=== PATIENT | female | born 1965 | race Caucasian/White ===

== ENCOUNTER 2022-07-05 08:26 | Outpatient (CLI) | payer BC, SELFPAY ==
--- NOTE | 2022-07-05 08:36 | MM_ITS ---
WS: [id number] BILATERAL 3D TOMOSYNTHESIS DIGITAL SCREENING MAMMOGRAPHY WITH CAD CLINICAL INFORMATION: SCREENING HISTORY: Screening mammogram. No current complaints. COMPARISON: 2019 TECHNIQUE: Bilateral CC and MLO views. FINDINGS: Scattered fibroglandular densities bilaterally. No suspicious focal mass, asymmetry, calcifications, or architectural distortion. No evidence of malignancy. MM/[place] [id number] IMPRESSION: BI-RADS: 1-Negative FOLLOW UP: 1 Year Follow-up Recommend return to annual screening mammography.
== END 2022-07-05 08:27 | disposition home or self-care (01) ==
LOC: RAD 08:27
PROVIDERS: PCP Physician Assistant; Visit Provider Physician Assistant
DX: Z12.31 Encounter for screening mammogram for malignant neoplasm of breast (principal)
CPT/HCPCS: 77063; 77067

== ENCOUNTER 2024-04-17 11:58 | Emergency (ER) | payer BC, SELFPAY ==
[2024-04-17] VITALS (9 sets, daily range): BP systolic 103–126; BP diastolic 62–89; PULSE 62–98; RESP 12–18; TEMP 36.8; O2SAT 66–100; BMI 29.7
--- NOTE | 2024-04-17 12:08 | ECG_ITS ---
[facility] Test Date: 2024-04-17 Pat Name: Carolina De Paz Department: Room: Gender: Female Client Success Manager: : 1965 Requested By: Faiza Vidales Order Number: [id number] Reading MD: MERLINE CLOUD Measurements Intervals [place] Rate: 69 P: 32 PA: 150 QRS: 43 QRSD: 81 T: 48 QT: 381 QTc: 410 Interpretive Statements SINUS RHYTHM LOW QRS VOLTAGE IN PRECORDIAL LEADS [QRS DEFLECTION < 1.0 mV IN CHEST LEADS] Compared to ECG 09/20/2016 17:57:22 No significant changes Electronically Signed On 04-17-2024 20:56:52 CDT by MERLINE CLOUD [email or web address]
--- NOTE | 2024-04-17 12:08 | XR_ITS ---
WS: [id number] Exam: XR chest 1V portable [id number] Date/Time of Exam: 04/17/2024 12:08 PM Reason For Exam: chest pain Comparison 09/20/2016. There has been interval cardiac enlargement with increased pulmonary vascularity. There are patchy in filtrates in the mid and lower RIGHT lung. No pleural effusion or pneumothorax. The mediastinum is no rmal in contour. XR/XR chest 1V portable [id number] IMPRESSION: 1. Interval cardiac enlargement with increased pulmonary vascularity. Some degr ee of early cardiac decompensation could have this appearance. 2. There are patchy infiltrates in the mid and lower RIGHT lung which could be secondary to developing pneumonia or early CHF.
--- NOTE | 2024-04-17 12:37 | W.ED.CHESTPA ---
HPI - Chest Pain General: Chief Complaint: Chest Pain Stated Complaint: back and chest pain Time Seen by Provider: 04/17/24 12:18 History of Present Illness: This healthy 59-year-old female who presents to the emergency room from clinic with chest and back pain. She has had some shortness of breath. Is always been over the last 2 days. She also notes she has some swelling in her right foot sometimes. No cough. No known medical history. No cardiac history. No abdominal pain. No nausea or vomiting. Related Data Previous Rx's Medication Instructions Recorded dexamethasone 6 mg tablet 6 mg PO DAILY 5 days #5 tabs 04/17/24 doxycycline hyclate 100 mg capsule 100 mg PO BID 7 days #14 caps 04/17/24 Allergies Allergy/AdvReac Type Severity Reaction Status Date / Time No Known Allergies Allergy Unverified 04/17/24 13:45 Review of Systems Narrative: Constitutional symptoms: Negative except as documented in HPI. Skin symptoms: Negative except as documented in HPI. Eye symptoms: Negative except as documented in HPI. ENMT symptoms: Negative except as documented in HPI. Respiratory symptoms: Negative except as documented in HPI. Cardiovascular symptoms: Negative except as documented in HPI. Gastrointestinal symptoms: Negative except as documented in HPI. Genitourinary symptoms: Negative except as documented in HPI. Musculoskeletal symptoms: Negative except as documented in HPI. Neurologic symptoms: Negative except as documented in HPI. Psychiatric symptoms: Negative except as documented in HPI. Endocrine symptoms: Negative except as documented in HPI. Physical Exam Narrative: EXAM NARRATIVE: General: Alert, no acute distress. Skin: Warm, dry. Head: Normocephalic, atraumatic. Neck: Supple, trachea midline. Eye: Extraocular movements are intact. Ears, nose, mouth and throat: mucosa moist. Cardiovascular: Regular, Normal peripheral perfusion. Respiratory: Lungs are clear to auscultation, respirations are non-labored, breath sounds are equal, Symmetrical chest wall expansion. Gastrointestinal: Soft, Nontender, Non distended Musculoskeletal: Normal ROM, no deformity. Neurological: Alert and oriented, No focal neurological deficit observed. Psychiatric: Cooperative, appropriate mood & affect. Course Vital Signs: Vital signs: Vital Signs Temperature 98.2 F 04/17/24 12:10 Pulse Rate 98 04/17/24 15:55 Respiratory Rate 17 04/17/24 14:30 Blood Pressure 124/71 04/17/24 15:55 Pulse Oximetry 66 L 04/17/24 15:55 Oxygen Delivery Me thod Room Air 04/17/24 15:30 MDM - Chest Pain Medical Decision Making Differential diagnosis for patient with chest pain includes but is not limited to and based on the above HPI, review of systems and physical exam: Pneumonia. unstable angina. angina. Acute coronary syndrome / AK. Pulmonary embolism. Costochondritis / musculoskeletal. Pleurisy. Pericarditis. Esophageal spasm. Pancreatis. Cholecystitis. Orders placed to evaluate differential diagnosis based on the above differential, HPI and physical exam EKG: Time 1201. Rate 69. Normal sinus rhythm, No ST-T changes, no ectopy, normal NC & QRS intervals, This was reviewed and interpreted by myself the ER physician at 1205. Repeat EKG: Time 1400. Rate 57. Sinus bradycardia, No ST-T changes, no ectopy, normal NC & QRS intervals, This was reviewed and interpreted by myself the ER physician at 1405. Heart rate has decreased from 69 to 57 from EKG done 2 hours ago Chest x-ray: Concern for increase in heart size and possibly some infiltrate in the right upper lobe. This was reviewed and interpreted by myself the emergency room physician. I also reviewed the radiology report. Lab Review: Laboratory results were reviewed and interpreted by myself the emergency room physician. Lab work is unremarkable. No leukocytosis. No anemia. No renal failure. Serial troponins are negative. CTA of the chest with PE protocol: Some possible patchy infiltrate in the right lung. No signs or symptoms that would indicate she does have heart failure. proBNP is not elevated either. This was reviewed and interpreted by myself the emergency room physician. I also reviewed the radiology report. I reviewed the patient's medical record. Reexamination: Patient remained stable. No increased work of breathing. No altered mental status. No focal motor deficits. Assessment and plan: Right sided infiltrate possible pneumonia. Noncardiac chest pain - Discharged home - Discussed findings and plan with patient. Answered any questions. - All laboratory values were reviewed and interpreted personally by myself, the ER physician - All imaging was reviewed and interpreted personally by myself, the ER physician. - Evaluation and treatment of this problem were appropriate in the emergency setting Lab Data 04/17/24 12:38 04/17/24 12:38 Radiology Impressions Chest X-Ray 04/17/24 12:08 IMPRESSION: 1. Interval cardiac enlargement with increased pulmonary vascularity. Some degree of early cardiac decompensation could have this appearance. 2. There are patchy infiltrates in the mid and lower RIGHT lung which could be secondary to developing pneumonia or early CHF. Chest CT 04/17/24 13:19 IMPRESSION: 1. Patchy nodular infiltrates in the RIGHT lower lobe nonspecific but likely infectious or inflammatory. Recommend correlation for pneumonia. Recommend follow-up to resolution. 2. LEFT lower lobe pulmonary nodule increased in size since 2019 measuring 1.6 cm. Neoplasm not excluded. Recommend further evaluation with PET/CT. 3. No other acute findings. Laboratory Results WBC 8.20 10^3/uL (3.29-11.43) 04/17/24 12:38 RBC 4.60 10^6/uL (3.85-5.65) 04/17/24 12:38 Hgb 13.40 g/dL (11.27-16.99) 04/17/24 12:38 Hct 42.0 % (36-47) 04/17/24 12:38 MCV 91.3 fl (85-98) 04/17/24 12:38 MCH 29.1 pg (27-33) 04/17/24 12:38 MCHC 31.9 g/dL (30-55) 04/17/24 12:38 RDW 12.5 % (12.1-15.1) 04/17/24 12:38 Plt Count 225 10^3/cmm (157-399) 04/17/24 12:38 MPV 9.9 fL (7.4-10.4) 04/17/24 12:38 Neut % (Auto) 74.4 % 04/17/24 12:38 Lymph % (Auto) 17.1 % 04/17/24 12:38 [place] % (Auto) 7.9 % 04/17/24 12:38 Eos % (Auto) 0.0 % 04/17/24 12:38 Baso % (Auto) 0.4 % 04/17/24 12:38 Neut # (Auto) 6.10 10^3/uL (1.8-7.7) 04/17/24 12:38 Lymph # (Auto) 1.4 10^3/uL (0.8-4.8) 04/17/24 12:38 [place] # (Auto) 0.7 10^3/uL (0.2-0.9) 04/17/24 12:38 Eos # (Auto) 0.0 10^3/uL (0.0-0.8) 04/17/24 12:38 Baso # (Auto) 0.0 10^3/uL (0.0-0.1) 04/17/24 12:38 Nucleated RBC % (auto) 0 % 04/17/24 12:38 Nucleated RBCs # 0.0 /100WBC 04/17/24 12:38 D-Dimer 0.49 ug/mLFEU (0-0.59) 04/17/24 12:38 Sodium 140 mmol/L (136-145) 04/17/24 12:38 Potassium 4.0 mmol/L (3.5-5.1) 04/17/24 12:38 Chloride 105 mmol/L (98-107) 04/17/24 12:38 Carbon Dioxide 25 mmol/L (22-29) 04/17/24 12:38 Anion Gap 14.0 (5-19) 04/17/24 12:38 BUN 17 mg/dL (8-23) 04/17/24 12:38 Creatinine 0.6 mg/dL (0.5-0.9) 04/17/24 12:38 GFR Calculation 102.0 mL/min (90-130) 04/17/24 12:38 Glucose 97 mg/dL (65-115) 04/17/24 12:38 Calculated Osmolality 291 mOsm/kg (285-295) 04/17/24 12:38 Calcium 8.9 mg/dL (8.5-10.5) 04/17/24 12:38 Total Bilirubin 0.4 mg/dL (0.15-1.2) 04/17/24 12:38 AST 12 U/L (0-32) 04/17/24 12:38 ALT 13 U/L (0-33) 04/17/24 12:38 Alkaline Phosphatase 82 U/L (35-105) 04/17/24 12:38 Troponin T Baseline < 6 ng/L (0-10) 04/17/24 12:38 Troponin T 120 Minute 6.78 ng/L (0-10) 04/17/24 15:05 Delta Troponin T 0.47313 ABS# (0-10) 04/17/24 15:05 NT-Pro-B Natriuret Pep 117 pg/mL (0-125) 04/17/24 12:38 Total Protein 6.3 g/dL (6.6-8.7) L 04/17/24 12:38 Albumin 4.0 g/dL (3.5-5.2) 04/17/24 12:38 Globulin 2.3 g/dL (1.3-4.6) 04/17/24 12:38 All radiology interpretation(s) finalized by discharge Discharge Plan Discharge Patient Disposition: Home Clinical Impression: Atypical chest pain, Pneumonia, Pulmonary nodule Condition: Stable Prescriptions: New doxycycline hyclate 100 mg capsule 100 mg PO BID 7 Days Qty: 14 0RF dexamethasone 6 mg tablet 6 mg PO DAILY 5 Days Qty: 5 0RF Discharge Orders: Discharge ED (Routine); Ordered 04/17/24 Ordered By: Evonne Dover Referrals: Sarah Hadley PA [Primary Care Provider] - Discharge Diet: Usual diet Discharge Activity: Increase activity as tolerated Patient Instructions: Community Acquired Pneumonia (ED), Pulmonary Nodules (ED), Noncardiac Chest Pain (ED) Activity Restrictions/Additional Instructions: A pulmonary nodule was seen on imaging. This will need follow up imaging with your primary provider. Please schedule an appointment concerning this. Radiology recommends a PET/CT. Thank you for choosing [facility] for your healthcare needs today. Please realize this is an emergency room and that we are providing you with a medical screening exam and this may not be complete and all inclusive of all the testing and or work up that you may need to determine your ailment or severity of your illness. You have been screened and evaluated and felt safe for discharge. Health conditions do change or evolve sometimes and as such it is important that you follow up with your Primary Doctor to be re checked, 3-5 days is a general good time frame for follow up. You are always welcome to return to the ED for re assessment if your symptoms are worsening or you have new concerns Stand Alone Forms: Work/School Release Coding Level of Care Code ED Correspondence Analyst for Jalil Talavera
[2024-04-17 12:49] LABS: Basophils % 0.4 %; Lymphocytes # 1.4 10^3/uL (0.8-4.8); Lymphocytes % 17.1 %; Mean Corpuscular HGB Conc 31.9 g/dL (30-55); Mean Corpuscular Hemoglobin 29.1 pg (27-33); Mean Corpuscular Volume 91.3 fl (85-98); Mean Platelet Volume 9.9 fL (7.4-10.4); Monocytes # 0.7 10^3/uL (0.2-0.9); Monocytes % 7.9 %; Neutrophils % 74.4 %; Nucleated Red Blood Cells % 0 %; Platelet Count 225 10^3/cmm (157-399); Red Cell Distribution Width 12.5 % (12.1-15.1)
[2024-04-17 13:07] LABS: Troponin(5th) Baseline < 6 ng/L (0-10)
[2024-04-17 13:15] LABS: D Dimer 0.49 ug/mLFEU (0-0.59)
[2024-04-17 13:18] LABS: Alanine Aminotransferase 13 U/L (0-33); Alkaline Phosphatase 82 U/L (35-105); Aspartate Amino Transferase 12 U/L (0-32); Blood Urea Nitrogen 17 mg/dL (8-23); Calcium 8.9 mg/dL (8.5-10.5); Carbon Dioxide 25 mmol/L (22-29); Chloride 105 mmol/L (98-107); Creatinine Clr Calc Pharmacy 112.4411; Globulin 2.3 g/dL (1.3-4.6); Glucose 97 mg/dL (65-115); NT Pro B Type Natriuretic Pept 117 pg/mL (0-125); Osmolality Calculated 291 mOsm/kg (285-295); Sodium 140 mmol/L (136-145); Total Bilirubin 0.4 mg/dL (0.15-1.2); Total Protein 6.3 g/dL (6.6-8.7)
--- NOTE | 2024-04-17 13:19 | CT_ITS ---
WS: [id number] CT CHEST TECHNIQUE: Noncontrast CT of the chest with coronal and sagittal reformatted images. CLINICAL INFORMATION: abnormal chest xray COMPARISON: CT 2019 DLP: 465.[address] scans at [facility] use at least one of these dose optimization techniques: automated e xposure control; mA and/or kV adjustment per patient size (includes targeted exams where dose is matc hed to clinical indication); or iterative reconstruction. FINDINGS: Previous described nodule superior segment LEFT lower lobe appears slightly increased in size compare d to 2019. Today this measures approximately 1.6 cm compared to 1.2 cm previous. Neoplasm not exclude d. Recommend further evaluation with PET/CT. Patchy nodular opacities in the RIGHT lower lobe peripherally are indeterminate but may be infectious or inflammatory. Recommend correlation for pneumonia. Aortic calcification. Nodular RIGHT thyroid measuring 2.5 cm. No mediastinal or hilar lymphadenopath y. No axillary lymphadenopathy. Small RIGHT adrenal nodule likely adenoma measuring 14 mm. Normal LEF T adrenal gland. Cholecystectomy clips. Postoperative changes stomach. Low-attenuation lesion RIGHT h epatic lobe likely hepatic cyst. CT/CT chest wo con [id number] IMPRESSION: 1. Patchy nodular infiltrates in the RIGHT lower lobe nonspecific but likely i nfectious or inflammatory. Recommend correlation for pneumonia. Recommend follo w-up to resolution. 2. LEFT lower lobe pulmonary nodule increased in size since 2019 measuring 1.6 cm. Neoplasm not excluded. Recommend further evaluation with PET/CT. 3. No other acute findings.
--- NOTE | 2024-04-17 13:45 | PC.PHAR ---
pt states takes no maintenance medications just vitamins
--- NOTE | 2024-04-17 14:08 | ECG_ITS ---
[facility] Test Date: 2024-04-17 Pat Name: Carolina De Paz Department: Room: Gender: Female Handling Tech: : 1965 Requested By: Faiza Vidales Order Number: [id number] Reading MD: MERLINE CLOUD Measurements Intervals [place] Rate: 57 P: 16 [place]: 160 QRS: 20 QRSD: 100 T: 24 QT: 394 QTc: 386 Interpretive Statements SINUS BRADYCARDIA LOW QRS VOLTAGE IN PRECORDIAL LEADS [QRS DEFLECTION < 1.0 mV IN CHEST LEADS] Compared to ECG 04/17/2024 12:01:01 Sinus rhythm no longer present Electronically Signed On 04-17-2024 21:05:10 CDT by MERLINE CLOUD [email or web address]
[2024-04-17 15:32] LABS: Troponin 5 2HR 6.78 ng/L (0-10); Troponin 5 2HR Delta 0.78001 ABS# (0-10)
== END 2024-04-17 15:56 | disposition home or self-care (01) ==
PROVIDERS: Physician Assistant; Emergency Provider Emergency Medicine; PCP Physician Assistant
DX: R07.89 Other chest pain (principal); J18.9 Pneumonia, unspecified organism; R91.1 Solitary pulmonary nodule
CPT/HCPCS: 36415; 71045; 71250; 80053; 83880; 84484; 85025; 85378; 93005; 99285

== ENCOUNTER 2024-05-11 11:46 | Outpatient (CLI) | payer BC, SELFPAY ==
--- NOTE | 2024-05-11 11:50 | PETR_ITS ---
PROCEDURE INFORMATION: Exam: PET/CT Whole Body Exam date and time: 05/11/2024 1:23 PM Age: 59 years old Clinical indication: Abnormal findings; Lung nodule LABS AND CLINICAL REPORTS: Glucose: 86 mg/dl Treatment strategy for malignancy (PET staging): Initial Staging (PI) TECHNIQUE: Imaging protocol: Following at least four-hour fasting and following the injection of radiopharmaceutical, low dose CT images were obtained. Then, PET images were obtained. Attenuation corrected images were constructed using the CT scan. Fused images of PET and CT were reviewed. The standardized uptake values (SUV) reported below are maximum values within a region of interest, expressed in gm/ml. Exam includes the whole body. Radiopharmaceutical: 11.26 mCi F-18 FDG (Fluorodeoxyglucose), IV. Time of imaging post radiopharmaceutical administration: 1 hour Injection site: LEFT AC COMPARISON: CT chest wo con [id number] 04/17/2024, CT chest with contrast 04/11/2019 FINDINGS: Brain: On the nondedicated limited brain images there is no abnormal distribution of the radiotracer in the elizabeth and white matter. Pharynx: Normal distribution of the radiotracer in nasopharyngeal, oropharyngeal, and laryngeal structures. Larynx: Normal distribution of the radiotracer in nasopharyngeal, oropharyngeal, and laryngeal structures. Thyroid: No abnormal uptake. Stable mild enlargement of the right thyroid lobe likely representing benign nodule. Lungs, pleura and trachea: Cluster of nodules measuring up to 1.4 cm scattered in the peribronchial distribution in the right lower lobe anteriorly measure 2.8 SUV. 1.7 cm solid nodule in the superior segment of the left lower lobe (series 202, image 127 is not FDG avid (1.4 SUV) present in 2019 measuring 1.4 cm at this time compatible with benign granuloma. No pleural effusion. Heart: Unremarkable. There is no cardiomegaly. No coronary artery calcification is visualized. There is no pericardial effusion. Mediastinal space: No abnormal uptake. Liver: No abnormal uptake. Maximal uptake if 3.7 SUV. Stable 1.4 cm simple cyst in the segment 7. Gallbladder and biliary ducts: Unremarkable. Status post cholecystectomy. Pancreas: Normal distribution of radiotracer. Spleen: Normal size without abnormal radiotracer uptake. Adrenal glands: No abnormal uptake. Stable 1.2 cm thickening of the right adrenal body suggestive of benign finding, possible small adenoma. No left adrenal nodules. Kidneys and ureters: Normal physiologic uptake. No hydronephrosis. 5 x 3 mm nonobstructing stone in the lower gorge of the left kidney. Stomach and bowel: No abnormal uptake. Diverticulosis of the sigmoid colon intraperitoneal and retroperitoneal spaces: No abnormal uptake. No ascites. Bladder: Normal physiologic uptake. Reproductive: No abnormal uptake. 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 Vasculature: No abnormal uptake. Lymph nodes: No radiotracer avid supraclavicular or cervical lymphadenopathy. Skeleton: Punctate focus of mildly increased uptake of 3.1 SUV in the left knee within the patellofemoral joint (series 301, image 426) likely represents benign finding. Otherwise no abnormal uptake in the visualized axial and appendicular skeleton. 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 Soft tissues: No abnormal uptake in the visualized head, neck, chest, abdomen, pelvis, and extremities. PET/PET WB melanoma INITIAL [id number] IMPRESSION: Borderline uptake of 2.8 SUV within the cluster of peribronchial nodules measuring up to 1.4 cm anteriorly in the right lower lobe may be malignant or benign based on uptake, more typical for infection based on morphologic appearance. No FDG avid lymphadenopathy in the chest, no evidence of distant FDG avid metastatic disease. Non FDG avid left lower lobe lung nodule increased by 3 mm in 5 years (from 1.4 cm in 2019 21.7 cm on the current exam) is compatible with benign granuloma.
== END 2024-05-11 11:47 | disposition home or self-care (01) ==
PROVIDERS: PCP Physician Assistant; Visit Provider Physician Assistant
DX: R91.1 Solitary pulmonary nodule (principal); M47.896 Other spondylosis, lumbar region; M43.16 Spondylolisthesis, lumbar region; K57.90 Diverticulosis of intestine, part unspecified, without perforation or abscess without bleeding; D35.01 Benign neoplasm of right adrenal gland
CPT/HCPCS: 78816; A9552